=== PATIENT | male | born 1955 | race Caucasian/White ===

== ENCOUNTER → 2019-01-07 | Outpatient (CLI) | payer BC ==
[2019-01-07 13:02] LABS: Basophils # (A) 0.1 k/uL (0-0.2); Basophils % (A) 1 %; Eosinophils # (A) 0.2 k/uL (0-0.7); Eosinophils % (A) 2 %; HCT 45.9 % (39.0-53.0); HGB 15.2 gm/dL (13.0-17.5); Lymphocytes # (A) 1.6 k/uL (1.0-4.8); Lymphocytes % (A) 19 %; MCH 30.2 pg (25.0-35.0); MCHC 33.2 g/dL (31.0-37.0); Mean Platelet Volume 6.5; Monocytes # (A) 0.6 k/uL (0-1.0); Monocytes % (A) 7 %; Neutrophils # (A) 5.8 k/uL (1.3-7.7); Neutrophils % (A) 69 %; Platelet Count 300 k/uL (150-450); RBC 5.04 m/uL (4.30-5.90); RDW 13.3 % (11.5-15.5); WBC 8.3 k/uL (3.8-10.6)
[2019-01-07 14:35] LABS: Erythrocyte Sedimentation Rate 7 mm/hr (0-15)
[2019-01-07 21:17] LABS: Codfish IgE <0.10 kU/L
[2019-01-07 21:40] LABS: Egg White IgE <0.10 kU/L; Scallop IgE <0.10 kU/L
[2019-01-07 21:41] LABS: Clam IgE <0.10 kU/L; Shrimp IgE <0.10 kU/L; Soybean IgE <0.10 kU/L; Walnut IgE (Food) <0.10 kU/L
[2019-01-07 21:42] LABS: Peanut IgE <0.10 kU/L
[2019-01-08 13:58] LABS: Alt. alternata IgE Class CLASS 0; Alternaria alternata IgE <0.35 kU/L (<0.35); Asperg. fumagatus IgE <0.35 kU/L (<0.35); Asperg. fumagatus IgE Class CLASS 0; Beef IgE <0.35 kU/L (<0.35); Beef IgE Class CLASS 0; Bermuda Grass IgE <0.35 kU/L (<0.35); Birch(Com.Silvr) IgE <0.35 kU/L (<0.35); Birch(Com.Silvr) IgE Class CLASS 0; Cat Epith & Dander IgE <0.35 kU/L (<0.35); Cat Epith & Dander IgE Class CLASS 0; Clad herbarum IgE <0.35 kU/L (<0.35); Clad herbarum IgE Class CLASS 0; Cockroach IgE 0.42 kU/L (<0.35); Cottonwood IgE <0.35 kU/L (<0.35); Dermato. Pteronyssinus Class CLASS IV; Dermato. farinae IgE Class CLASS IV; Dog Dander IgE <0.35 kU/L (<0.35); Elm IgE <0.35 kU/L (<0.35); Maple (Box Elder) IgE <0.35 kU/L (<0.35); Maple (Box Elder) IgE Class CLASS 0; Mountain Cedar IgE <0.35 kU/L (<0.35); Mountain Cedar IgE Class CLASS 0; Mouse Urine IgE Class CLASS 0; Nettle IgE <0.35 kU/L (<0.35); Nettle IgE Class CLASS 0; Oak IgE <0.35 kU/L (<0.35); Penicillium notatum IgE Class CLASS I; Rough Marshelder IgE <0.35 kU/L (<0.35); Rough Marshelder IgE Class CLASS 0; Timothy Grass IgE <0.35 kU/L (<0.35); White Ash IgE Class CLASS 0
[2019-01-08 13:59] LABS: Chicken IgE Class CLASS 0; Latex IgE Class CLASS 0; Yeast Bakers/Brew IgE 0.47 kU/L (<0.35)
== END | disposition home or self-care (01) ==
LOC: LABWHC1 12:31
PROVIDERS: ATTEND Otolaryngology
DX: L50.0 Allergic urticaria (principal); R21 Rash and other nonspecific skin eruption
CPT/HCPCS: 36415; 82785; 85025; 85652; 86003; 86140

== ENCOUNTER → 2019-06-04 | Outpatient (CLI) | payer BC ==
[2019-06-04 14:42] LABS: Basophils # (A) 0.2 k/uL (0-0.2); Basophils % (A) 1 %; Eosinophils # (A) 0.2 k/uL (0-0.7); Eosinophils % (A) 1 %; HCT 42.6 % (39.0-53.0); HGB 13.3 gm/dL (13.0-17.5); Lymphocytes # (A) 3.6 k/uL (1.0-4.8); Lymphocytes % (A) 16 %; MCH 28.9 pg (25.0-35.0); MCHC 31.1 g/dL (31.0-37.0); Mean Platelet Volume 6.6; Monocytes % (A) 4 %; Neutrophils # (A) 17.2 k/uL (1.3-7.7); Neutrophils % (A) 77 %; Platelet Count 768 k/uL (150-450); RBC 4.58 m/uL (4.30-5.90); RDW 13.8 % (11.5-15.5); WBC 22.4 k/uL (3.8-10.6)
== END | disposition home or self-care (01) ==
LOC: LABWHC1 13:44
PROVIDERS: ATTEND Registered Nurse
DX: D64.9 Anemia, unspecified (principal)
CPT/HCPCS: 36415; 85025

== ENCOUNTER → 2019-06-10 | Outpatient (CLI) | payer BC ==
[2019-06-10 12:24] LABS: HCT 39.9 % (39.0-53.0); HGB 12.7 gm/dL (13.0-17.5); MCH 29.6 pg (25.0-35.0); MCHC 31.9 g/dL (31.0-37.0); MCV 92.9 fL (80.0-100.0); Mean Platelet Volume 6.3; Platelet Count 672 k/uL (150-450); RDW 14.9 % (11.5-15.5)
[2019-06-10 15:46] LABS: Erythrocyte Sedimentation Rate 30 mm/hr (0-15)
[2019-06-10 16:44] LABS: ALT 48 U/L (10-49); AST 36 U/L (14-35); African American GFR (CKD) 109.4 (60.0-200.0); Alkaline Phosphatase 92 U/L (41-126); C Reactive Protein <0.4 mg/dL (0.0-0.8); Calcium 8.9 mg/dL (8.7-10.3); Carbon Dioxide 26.9 mmol/L (21.6-31.8); Chloride 102 mmol/L (96-109); Glucose 93 mg/dL (70-110); Non-African American GFR(CKD) 94.4 (60.0-200.0); Potassium 3.8 mmol/L (3.5-5.5); Sodium 139 mmol/L (135-145); Total Bilirubin 0.4 mg/dL (0.3-1.2); Total Protein 5.6 g/dL (6.2-8.2)
[2019-06-10 17:31] LABS: Hepatitis A Antibody IgM Non-Reactive (Non-Reactive); Hepatitis B Core IgM Non-Reactive (Non-Reactive); Hepatitis B Surface Antigen Non-Reactive (Non-Reactive); Hepatitis C IgG Antibody Non-Reactive (Non-Reactive)
== END | disposition home or self-care (01) ==
LOC: LABWHC1 11:14
PROVIDERS: ATTEND Physician Assistant
DX: K50.90 Crohn's disease, unspecified, without complications (principal)
CPT/HCPCS: 36415; 80053; 80074; 85027; 85652; 86140; 86480

== ENCOUNTER → 2019-10-30 | Outpatient (CLI) | payer BC ==
[2019-10-30 16:01] LABS: HCT 44.7 % (39.0-53.0); HGB 14.7 gm/dL (13.0-17.5); MCH 30.8 pg (25.0-35.0); MCHC 32.9 g/dL (31.0-37.0); MCV 93.8 fL (80.0-100.0); Mean Platelet Volume 8.2; Platelet Count 324 k/uL (150-450); RBC 4.76 m/uL (4.30-5.90); RDW 13.2 % (11.5-15.5); WBC 9.7 k/uL (3.8-10.6)
[2019-10-30 23:25] LABS: Erythrocyte Sedimentation Rate 15 mm/Hr (0-20)
[2019-10-30 23:27] LABS: African American GFR (CKD) 104.2 (60.0-200.0); Albumin 4.4 g/dL (3.80-4.90); Albumin/Globulin Ratio 1.76 (1.60-3.17); Anion Gap 8.8 mmol/L (4.00-12.00); BUN/Creat Ratio 17.78 Ratio (12.00-20.00); C Reactive Protein 3.1 mg/dL (0.0-0.8); Calcium 9.2 mg/dL (8.7-10.3); Carbon Dioxide 21.2 mmol/L (21.6-31.8); Globulin 2.5 g/dL (1.6-3.3); Non-African American GFR(CKD) 89.9 (60.0-200.0); Potassium 3.9 mmol/L (3.5-5.5); Total Bilirubin 0.8 mg/dL (0.3-1.2); Total Protein 6.9 g/dL (6.2-8.2)
== END | disposition home or self-care (01) ==
LOC: LABWHC1 13:23
PROVIDERS: ATTEND Physician Assistant
DX: K51.90 Ulcerative colitis, unspecified, without complications (principal)
CPT/HCPCS: 36415; 80053; 85027; 85652; 86140

== ENCOUNTER 2021-02-19 16:06 | Emergency (ER) | payer BC, MEDICARE ==
[2021-02-19] MEDS ORDERED: MORPHINE SULFATE 4 MG/ML SYRINGE IV STA (17:35)
[2021-02-19] MEDS ORDERED: SODIUM CHLORIDE 0.9% 1,000 ML IV STA (17:35)
[2021-02-19] MEDS ORDERED: ONDANSETRON 4 MG/2 ML VIAL IVP STA (17:35)
[2021-02-19] MEDS ORDERED: methylPREDNISolone SOD SUCCI 125 MG/2 ML VIAL IV STA (17:36)
--- NOTE | 2021-02-19 18:15 | ED ---
Abdominal Pain HPI - General Chief Complaint: Abdominal Pain Stated Complaint: colitis flare up Time Seen by Provider: 02/19/21 17:18 Source: patient, RN notes reviewed, old records reviewed Mode of arrival: ambulatory Limitations: no limitations - History of Present Illness Initial Comments: Patient is a 65-year-old male presenting to the emergency Department with complaints of a flare-up of UC. Patient states he's been having diarrhea on and off abdominal pain over the past 2 weeks. He did see his iridologist, Dr. Luis last week, started him on a steroid, it was not helping. He followed back up with his primary care physician who started him on prednisone yesterday. He took 40 mg yesterday, none today. He takes Humira regularly for his UC. He states has been doing fairly well has not had a flareup in the past couple years. He recently lost his secondary to cancer one month ago and has been under a lot of stress. He believes this is the reason for his flareup. He has not been taking anything for pain. Denies any chest pain or shortness of breath, no fevers or chills, some intermittent nausea but no vomiting. Some days it is a little bit of blood mixed in his diarrhea. He's been going about 7-10 times daily, but it has been very little amounts the past couple days. Patient has no further complaints. His vitals are stable upon arrival. - Related Data Home Medications Medication Instructions Recorded Confirmed ALPRAZolam [Xanax] 0.25 mg PO BID 02/19/21 02/19/21 Atorvastatin [Lipitor] 80 mg PO DAILY 02/19/21 02/19/21 Budesonide [Budesonide EC] 9 mg PO DAILY 02/19/21 02/19/21 Humira Unknown Dose 1 dose SQ Q14D 02/19/21 02/19/21 Losartan Potassium 100 mg PO DAILY 02/19/21 02/19/21 Montelukast [Singulair] 10 mg PO HS 02/19/21 02/19/21 Omeprazole 40 mg PO DAILY 02/19/21 02/19/21 Allergies Allergy/AdvReac Type Severity Reaction Status Date / Time iodine Allergy Severe Swelling Verified 02/19/21 18:10 shellfish derived [Shellfish] Allergy Swelling Verified 02/19/21 18:10 Review of Systems ROS Statement: Those systems with pertinent positive or pertinent negative responses have been documented in the HPI. ROS Other: All systems not noted in ROS Statement are negative. Past Medical History Past Medical History: GERD/Reflux, Hyperlipidemia, Hypertension Additional Past Medical History / Comment(s): COLITIS History of Any Multi-Drug Resistant Organisms: None Reported Past Surgical History: Hernia Repair Additional Past Surgical History / Comment(s): EGD, COLONOSCOPY,VASECTOMY, hernia repair x 2 Past Anesthesia/Blood Transfusion Reactions: Motion Sickness, Postoperative Nausea & Vomiting (PONV) Past Psychological History: No Psychological Hx Reported Smoking Status: Never smoker Past Alcohol Use History: Occasional Past Drug Use History: None Reported - Past Family History Mother Family Medical History: No Reported History General Exam - General Exam Comments Initial Comments: GENERAL: Patient is well-developed and well-nourished. Patient is nontoxic and in no acute distress. HEAD: Atraumatic, normocephalic. EYES: Pupils equal round and reactive to light, extraocular movements intact, sclera anicteric, conjunctiva are normal. Eyelids were unremarkable. ENT: Moist mucous membranes. NECK: Normal range of motion, supple without lymphadenopathy or JVD. LUNGS: Unlabored respirations. Breath sounds clear to auscultation bilaterally and equal. No wheezes rales or rhonchi. HEART: Regular rate and rhythm without murmurs, rubs or gallops. ABDOMEN: Soft, tender in the left side of the abdomen, normoactive bowel sounds. No guarding, no rebound. No masses appreciated. MUSCULOSKELETAL: Normal extremities with adequate strength and normal range of motion, no pitting or edema. No clubbing or cyanosis. NEUROLOGICAL: Patient is alert and oriented x 3. Motor and sensory are also intact. Cranial nerves II through XII grossly intact. Symmetrical smile. Normal speech, normal gait. PSYCH: Normal mood, normal affect. SKIN: Warm, Dry, normal turgor, no rashes or lesions noted. Limitations: no limitations Course Vital Signs 02/19/21 02/19/21 16:34 21:26 Temperature 99.1 F 98.0 F Pulse Rate 110 H 79 Respiratory 20 17 Rate Blood Pressure 125/80 128/68 O2 Sat by Pulse 95 95 Oximetry Medical Decision Making - Medical Decision Making Patient is a 65-year-old male with history of ulcerative colitis, presenting with a flareup over the past 2 weeks. He was started on prednisone yesterday by his PCP. He follows with Dr. Luis. His vitals are stable upon arrival. Patient's labs show no acute abnormality other than some mild transaminitis. I recommended following up with his PCP regarding this. Patient received some fluids, pain control and has been resting comfortably. He states his pain is gone at this time. I do recommend continuing on his already prescribed ruel roids. He is agreeable to this. I also recommended following up with Dr. Luis. Return parameters were discussed with him and he verbalized understanding. Case discussed with Dr. Turcios. - Lab Data Result diagrams: 02/19/21 18:46 02/19/21 18:46 Lab Results 02/19/21 02/19/21 02/19/21 Range/Units 18:46 18:46 18:46 WBC 9.0 (3.8-10.6) k/uL RBC 4.67 (4.30-5.90) m/uL Hgb 14.6 (13.0-17.5) gm/dL Hct 42.1 (39.0-53.0) % MCV 90.3 (80.0-100.0) fL MCH 31.2 (25.0-35.0) pg MCHC 34.6 (31.0-37.0) g/dL RDW 12.7 (11.5-15.5) % Plt Count 368 (150-450) k/uL MPV 7.5 Neutrophils % (Manual) 55 % Band Neuts % (Manual) 12 % Lymphocytes % (Manual) 14 % Monocytes % (Manual) 16 % Eosinophils % (Manual) 3 % Neutrophils # (Manual) 6.00 (1.3-7.7) k/uL Lymphocytes # (Manual) 1.26 (1.0-4.8) k/uL Monocytes # (Manual) 1.44 H (0-1.0) k/uL Eosinophils # (Manual) 0.27 (0-0.7) k/uL Nucleated RBCs 0 (0-0) /100 WBC Manual Slide Review Performed Poikilocytosis (manual Present PT (9.0-12.0) sec INR (<1.2) APTT (22.0-30.0) sec Sodium 133 L (137-145) mmol/L Potassium 4.2 (3.5-5.1) mmol/L Chloride 100 (98-107) mmol/L Carbon Dioxide 24 (22-30) mmol/L Anion Gap 9 mmol/L BUN 15 (9-20) mg/dL Creatinine 0.84 (0.66-1.25) mg/dL Est GFR (CKD-EPI)AfAm >90 (>60 ml/min/1.73 sqM) Est GFR (CKD-EPI)NonAf >90 (>60 ml/min/1.73 sqM) Glucose 123 H (74-99) mg/dL Plasma Lactic Acid Weston (0.7-2.0) mmol/L Calcium 9.0 (8.4-10.2) mg/dL Total Bilirubin 0.4 (0.2-1.3) mg/dL AST 105 H (17-59) U/L ALT 138 H (4-49) U/L Alkaline Phosphatase 68 (38-126) U/L Total Protein 6.5 (6.3-8.2) g/dL Albumin 3.4 L (3.5-5.0) g/dL Amylase 65 (30-110) U/L Lipase 52 (23-300) U/L Urine Color Yellow Urine Appearance Clear (Clear) Urine pH 5.5 (5.0-8.0) Ur Specific Isabel 1.021 (1.001-1.035) Urine Protein 1+ H (Negative) Urine Glucose (UA) Negative (Negative) Urine Ketones Negative (Negative) Urine Blood Trace H (Negative) Urine Nitrite Negative (Negative) Urine Bilirubin Negative (Negative) Urine Urobilinogen <2.0 (<2.0) mg/dL Ur Leukocyte Esterase Negative (Negative) Urine RBC 1 (0-5) /hpf Urine WBC 1 (0-5) /hpf Urine Mucus Few H (None) /hpf 02/19/21 02/19/21 Range/Units 18:46 18:46 WBC (3.8-10.6) k/uL RBC (4.30-5.90) m/uL Hgb (13.0-17.5) gm/dL Hct (39.0-53.0) % MCV (80.0-100.0) fL MCH (25.0-35.0) pg MCHC (31.0-37.0) g/dL RDW (11.5-15.5) % Plt Count (150-450) k/uL MPV Neutrophils % (Manual) % Band Neuts % (Manual) % Lymphocytes % (Manual) % Monocytes % (Manual) % Eosinophils % (Manual) % Neutrophils # (Manual) (1.3-7.7) k/uL Lymphocytes # (Manual) (1.0-4.8) k/uL Monocytes # (Manual) (0-1.0) k/uL Eosinophils # (Manual) (0-0.7) k/uL Nucleated RBCs (0-0) /100 WBC Manual Slide Review Poikilocytosis (manual PT 11.0 (9.0-12.0) sec INR 1.0 (<1.2) APTT 24.3 (22.0-30.0) sec Sodium (137-145) mmol/L Potassium (3.5-5.1) mmol/L Chloride (98-107) mmol/L Carbon Dioxide (22-30) mmol/L Anion Gap mmol/L BUN (9-20) mg/dL Creatinine (0.66-1.25) mg/dL Est GFR (CKD-EPI)AfAm (>60 ml/min/1.73 sqM) Est GFR (CKD-EPI)NonAf (>60 ml/min/1.73 sqM) Glucose (74-99) mg/dL Plasma Lactic Acid Weston 1.0 (0.7-2.0) mmol/L Calcium (8.4-10.2) mg/dL Total Bilirubin (0.2-1.3) mg/dL AST (17-59) U/L ALT (4-49) U/L Alkaline Phosphatase (38-126) U/L Total Protein (6.3-8.2) g/dL Albumin (3.5-5.0) g/dL Amylase (30-110) U/L Lipase (23-300) U/L Urine Color Urine Appearance (Clear) Urine pH (5.0-8.0) Ur Specific Isabel (1.001-1.035) Urine Protein (Negative) Urine Glucose (UA) (Negative) Urine Ketones (Negative) Urine Blood (Negative) Urine Nitrite (Negative) Urine Bilirubin (Negative) Urine Urobilinogen (<2.0) mg/dL Ur Leukocyte Esterase (Negative) Urine RBC (0-5) /hpf Urine WBC (0-5) /hpf Urine Mucus (None) /hpf Disposition Clinical Impression: Abdominal pain, Ulcerative colitis Disposition: HOME SELF-CARE Condition: Stable Instructions (If sedation given, give patient instructions): Ulcerative Colitis (ED) Additional Instructions: Please return to the Emergency Department if symptoms worsen or any other concerns. Recommend Tylenol for any discomfort, Tylenol No. 3 for more severe pain. Increase yours fluids. Please follow-up with Dr. Luis. Is patient prescribed a controlled substance at d/c from ED?: No Referrals: Jamel Campbell DO [Primary Care Provider] - 1-2 days Sandrine Luis MD [STAFF PHYSICIAN] - 1-2 days Time of Disposition: 20:55
--- NOTE | 2021-02-19 18:35 | XR ---
EXAMINATION TYPE: XR KUB DATE OF EXAM: 02/19/2021 COMPARISON: NONE HISTORY: Abdominal pain TECHNIQUE: 2 views upright FINDINGS: There is no sign of intestinal obstruction or pneumoperitoneum. Fecal pattern is normal. Th ere is some mild thumbprinting involving the descending colon. There are no calcifications over the k idneys. IMPRESSION: There is evidence for some thumbprinting of the left colon that could relate to colitis. No bowel obstruction.
[2021-02-19 18:55] LABS: Appearance,Urine Clear (Clear); Bilirubin,Urine Negative (Negative); Blood,Urine Trace (Negative); Color,Urine Yellow; Glucose,Urine (UA) Negative (Negative); Ketones,Urine Negative (Negative); Leukocyte Esterase,Urine Negative (Negative); Mucus,Urine Few /hpf; Nitrite,Urine Negative (Negative); PH, Urine 5.5 (5.0-8.0); Protein,Urine 1+ (Negative); RBC,Urine 1 /hpf (0-5); Specific Gravity,Urine 1.021 (1.001-1.035); Urobilinogen,Urine <2.0 mg/dL (<2.0); WBC,Urine 1 /hpf (0-5)
[2021-02-19 19:44] LABS: ALT 138 U/L (4-49); AST 105 U/L (17-59); African American GFR (CKD) >90 (>60 ml/min/1.73 sqM); Albumin 3.4 g/dL (3.5-5.0); Alkaline Phosphatase 68 U/L (38-126); Amylase 65 U/L (30-110); Anion Gap 9 mmol/L; Blood Urea Nitrogen 15 mg/dL (9-20); Carbon Dioxide 24 mmol/L (22-30); Chloride 100 mmol/L (98-107); Glucose 123 mg/dL (74-99); Lipase 52 U/L (23-300); Non-African American GFR(CKD) >90 (>60 ml/min/1.73 sqM); Potassium 4.2 mmol/L (3.5-5.1); Sodium 133 mmol/L (137-145); Total Bilirubin 0.4 mg/dL (0.2-1.3); Total Protein 6.5 g/dL (6.3-8.2)
[2021-02-19 19:51] LABS: Partial Thromboplastin Time 24.3 sec (22.0-30.0)
[2021-02-19 20:01] LABS: HCT 42.1 % (39.0-53.0); HGB 14.6 gm/dL (13.0-17.5); MCH 31.2 pg (25.0-35.0); MCHC 34.6 g/dL (31.0-37.0); MCV 90.3 fL (80.0-100.0); Mean Platelet Volume 7.5; Platelet Count 368 k/uL (150-450); RBC 4.67 m/uL (4.30-5.90); RDW 12.7 % (11.5-15.5)
[2021-02-19] MEDS ORDERED: ACET/COD 300 MG/30 MG STARTER PACK 6 TAB BTL PO STA (20:55)
[2021-02-19 21:08] LABS: Band Neutrophils % 12 %; Eosinophils # (M) 0.27 k/uL (0-0.7); Lymphocytes # (M) 1.26 k/uL (1.0-4.8); Monocytes # (M) 1.44 k/uL (0-1.0); Neutrophils % (M) 55 %; Nucleated Red Blood Cells 0 /100 WBC (0-0); Poikilocytosis (M) Present; Total Cells Counted 100
[2021-02-19 21:27] VITALS: BP 128/68; PULSE 79; RESP 17; TEMP 98
== END 2021-02-19 21:15 | disposition home or self-care (01) ==
LOC: EC 16:06
DX: K51.90 Ulcerative colitis, unspecified, without complications (principal); I10 Essential (primary) hypertension; E78.5 Hyperlipidemia, unspecified; K21.9 Gastro-esophageal reflux disease without esophagitis
CPT/HCPCS: 99284; 96374; 96375 ×2; 96361; 36415; 80053; 82150; 83605; 83690; 85025; 85610; 85730; 81001; 74018; J2270; J2930; J2405

== ENCOUNTER 2021-10-08 06:25 | Day surgery (SDC) | payer MEDICARE ==
[2021-10-06 11:18] VITALS: BMI 27.1
[~2021-10-08 06:25] MED LIST: LACTATED RINGERS 1,000 ML IV SCH; LIDOCAINE 1% (10MG/ML) FOR IV START INTRADERMA PRN
[2021-10-08 06:53] VITALS: RESP 16; TEMP 98.9
[2021-10-08] MEDS ORDERED: PROPOFOL 10 MG/ML 20 ML VIAL IV ONE (07:29)
[2021-10-08] MEDS ORDERED: LIDOCAINE 2% INJ 20 MG/ML (2 ML VIAL) ONE (07:29)
--- NOTE | 2021-10-08 07:52 | P.PCN ---
Date of Procedure: 10/08/21 Procedure(s) Performed: Brief history: Patient is a pleasant 66-year-old white male scheduled for an elective upper endoscopy as well as colonoscopy as a part of evaluation ofGERD and long- standing history of ulcerative colitis diagnosed in 2010. He is currently maintained on Humira 40 mg every 2 weeks since 05/2020. Procedure performed: Esophagogastroduodenoscopy with with biopsy Colonoscopywith biopsy Preoperative diagnosis: GERD Long-standing history of ulcerative colitis Anesthesia: MAC Procedure: After informed consent was obtained from the patient was brought into the endoscopy unit and IV sedation was administered by anesthesia under continuous monitoring. Initially upper endoscopy was done. The Olympus GF 160 video endoscope was inserted inserted into the mouth and esophagus intubated without any difficulty and was gradually advanced into the stomach and duodenum and carefully examined. The bulb and second part of the duodenum appeared normal. The scope was then withdrawn into the stomach adequately insufflated with air and upon careful examination the antrum and body, cardia and fundus appeared normal. The scope was then withdrawn into the esophagus. The GE junction was located at 40 cm to the incisors. Random biopsies were done from the cecum to rectum at every 10 cm into well.small sliding type hiatal hernia noted. It appeared regular with no erythema erosions or ulcerations. Rest of the esophagus appeared normal. Patient tolerated the procedure well. At this time the patient continued to remain sedation. Initial digital rectal examination was normal. Olympus CF 160 video colonoscope was then inserted into the rectum and gradually advanced to the cecum without any difficulty. Careful examination was performed as the scope was gradually being withdrawn. The prep was excellent. The cecum, ascending colonIV normal. Mucosa of the, transverse colon, descending colon, sigmoid colon and rectum had scattered pseudopolyps noted but no evidence of active colitis.random biopsies were done from the rectum to cecum and every 10 cm into well. Retroflexion was performed in the rectum and no lesions were noted. Patient tolerated the procedure well. Impression: 1. Upper endoscopy revealed small hiatal hernia but no evidence of esophagitis o r Srivastava's esophagus 2. Colonoscopy revealed scattered pseudopolyps involving the left colon but no evidence of active colitis or colorectal neoplasia Recommendations: Findings of this examination were discussed with the patient as well asHis family. He was advised to follow with the biopsy results. If the biopsy does not have evidence of dysplasia, he can have a repeat colonoscopy in 2 years.
[2021-10-08 07:58] VITALS: PULSE 76
[2021-10-08 08:08] VITALS: BP 135/84
== END 2021-10-08 08:31 | disposition home or self-care (01) ==
LOC: ORWHC2ENDO 06:25
PROVIDERS: ATTEND Internal Medicine Gastroenterology
DX: K51.90 Ulcerative colitis, unspecified, without complications (principal); K52.9 Noninfective gastroenteritis and colitis, unspecified; K21.00 Gastro-esophageal reflux disease with esophagitis, without bleeding; K44.9 Diaphragmatic hernia without obstruction or gangrene; I10 Essential (primary) hypertension; E78.5 Hyperlipidemia, unspecified; G47.33 Obstructive sleep apnea (adult) (pediatric); Z91.013 Allergy to seafood; Z87.891 Personal history of nicotine dependence; Z79.899 Other long term (current) drug therapy; Z88.8 Allergy status to other drugs, medicaments and biological substances
CPT/HCPCS: 88305; 45380; 43239; J2704; J2001

== ENCOUNTER → 2023-09-21 | Outpatient (CLI) | payer MEDICARE ==
--- NOTE | 2023-09-23 16:29 | CT ---
EXAMINATION TYPE: CT sinus wo con DATE OF EXAM: 09/21/2023 COMPARISON: None HISTORY: sinus congestion CT DLP: 413 mGycm CONTRAST: 0 mL of Isovue 300 The paranasal sinuses are examined in the axial plane at 2 mm thick sections. Reconstructed images i n the coronal plane were obtained. There is dental amalgam scatter artifact Minimal mucosal thickening within the inferior right maxillary sinus. The ethmoid air cells are tari r. The sphenoid sinuses are clear. The frontal sinuses are clear. The septum is evaluated. There is septal deviation to the right. Bilateral maria c bullosa of the mid dle turbinates may be present. Nasal passages patent. The ostiomeatal units are patent. IMPRESSION: 1. No suspicious paranasal sinus changes. Some minimal mucosal thickening within the inferior right maxillary sinus.
== END | disposition home or self-care (01) ==
LOC: RADCTMAIN 11:50
PROVIDERS: ATTEND Family Medicine
DX: J32.0 Chronic maxillary sinusitis (principal); J32.1 Chronic frontal sinusitis
CPT/HCPCS: 70486

== ENCOUNTER → 2023-11-22 | Outpatient (CLI) | payer MEDICARE ==
[2023-11-22 18:36] LABS: Alternaria alternata IgE 0.15 kU/L; Aspergillus fumagatus IgE <0.10 kU/L; Birch IgE <0.10 kU/L; Cat Epith & Dander IgE <0.10 kU/L; Cladosporian herbarum IgE <0.10 kU/L; Cockroach IgE <0.10 kU/L; Dermato. farinae IgE 5.34 kU/L; Maple (Box Elder) IgE <0.10 kU/L; Oak IgE <0.10 kU/L; Ragweed,Common IgE <0.10 kU/L
[2023-11-23 14:00] LABS: Aureo. pullulans IgE <0.10 kU/L (<0.10); Aureo. pullulans IgE Class CLASS 0; Candida albicans IgE Class CLASS 0; Com. Pigweed IgE 0.15 kU/L (<0.10); Com. Pigweed IgE Class CLASS 0/1; Cottonwood IgE <0.10 kU/L (<0.10); English Plantain IgE Class CLASS 0; Epicoccum purpurascens Class CLASS 0; Epicoccum purpurascens IgE <0.10 kU/L (<0.10); Johnson Grass IgE Class CLASS 0; Lamb's Quarter IgE <0.10 kU/L (<0.10); Lamb's Quarter IgE Class CLASS 0; Mucor racemosus IgE <0.10 kU/L (<0.10); Mucor racemosus IgE Class CLASS 0; Rhizopus nigricans IgE <0.10 kU/L (<0.10); Rhizopus nigricans IgE Class CLASS 0; S.rostrata/Helminth Class CLASS 0; S.rostrata/Helminth IgE <0.10 kU/L (<0.10); Sycamore(Mpl.Lf) IgE <0.10 kU/L (<0.10); Sycamore(Mpl.Lf) IgE Class CLASS 0; Timothy Grass IgE <0.10 kU/L (<0.10); Timothy Grass IgE Class CLASS 0; Walnut Tree IgE <0.10 kU/L (<0.10); Walnut Tree IgE Class CLASS 0; White Ash IgE Class CLASS 0
== END | disposition home or self-care (01) ==
LOC: LABWHC1 09:07
PROVIDERS: ATTEND Otolaryngology
DX: J30.89 Other allergic rhinitis (principal)
CPT/HCPCS: 36415; 82785; 86003

== ENCOUNTER 2024-01-03 05:51 | Day surgery (SDC) | payer MEDICARE ==
[2024-01-03] MEDS ORDERED: LIDOCAINE 1% (10MG/ML) FOR IV START INTRADERMA PRN (06:24)
[2024-01-03 06:35] VITALS: TEMP 98
[2024-01-03] MEDS: IV FLUID CONTINUATION 1,000 ML IV ONE (06:51)
[2024-01-03] MEDS: LACTATED RINGERS 1,000 ML IV SCH (06:52)
[2024-01-03] MEDS ORDERED: LIDOCAINE 1% INJ 10MG/ML (20 ML MDV) ONE (07:16)
[2024-01-03] MEDS ORDERED: PROPOFOL 10 MG/ML 20 ML VIAL IV ONE (07:16)
--- NOTE | 2024-01-03 07:33 | P.PCN ---
Date of Procedure: 01/03/24 Procedure(s) Performed: Brief history: Patient is a pleasant 68-year-old white male scheduled for an elective upper endoscopy as well as colonoscopy as a part of evaluation of longstanding history of GERD and screening for colon cancer/history of ulcerative colitis. He was diagnosed with ulcerative colitis in 2010 and has been maintained on Humira injections every 2 weeks and remains in clinical remission Procedure performed: Esophagogastroduodenoscopy biopsy Colonoscopy with biopsy Preoperative diagnosis: Longstanding history of GERD Screening for colon cancer/history of ulcerative colitis Anesthesia: MAC Procedure: After informed consent was obtained from the patient was brought into the endo scopy unit and IV sedation was administered by anesthesia under continuous monitoring. Initially upper endoscopy was done. The Olympus GF 160 video endoscope was inserted inserted into the mouth and esophagus intubated without any difficulty and was gradually advanced into the stomach and duodenum and carefully examined. The bulb and second part of the duodenum appeared normal. The scope was then withdrawn into the stomach adequately insufflated with air and upon careful examination the antrum and mild gastritis and biopsies were done from this area. Mucosa of the body, cardia and fundus appeared normal. The scope was then withdrawn into the esophagus. Mild hiatal hernia noted. The GE junction was located at 43 cm to the incisors. It appeared regular with no erythema erosions or ulcerations. Rest of the esophagus appeared normal. Patient tolerated the procedure well. At this time the patient continued to remain sedation. Initial digital rectal examination was normal. Olympus CF 160 video colonoscope was then inserted into the rectum and gradually advanced to the cecum without any difficulty. Careful examination was performed as the scope was gradually being withdrawn. The prep was excellent. The cecum, ascending colon, transverse colon appeared normal. Scattered pseudopolyps noted in the, descending colon, sigmoid colon. Scattered sigmoid diverticulosis seen. There was some mucosal scarring noted in the rectum from prior colitis. No active colitis seen. Random biopsies were done from the cecum to rectum at every 10 cm intervals to rule out dysplasia retroflexion was performed in the rectum and no lesions were noted. Patient tolerated the procedure well. Impression: 1. Upper endoscopy revealed mild gastritis and small hiatal hernia but no yuridia dence of esophagitis or Srivastava's esophagus 2. Colonoscopy revealed scattered pseudopolyps in the descending colon and spreading of the mucosa in the sigmoid and rectum with no active colitis or colo rectal neoplasia Recommendations: Findings of this examination were discussed with the patient as well as his family. He was advised to follow-up with the biopsy results. Continue with omeprazole 20 mg daily and follow antireflux measures. If the colon biopsies do not show any evidence of dysplasia, recommend repeat colonoscopy in 2 years.
[2024-01-03 07:53] VITALS: BP 160/82; PULSE 60; RESP 17
== END 2024-01-03 08:23 | disposition home or self-care (01) ==
LOC: ORWHC2ENDO 05:51
PROVIDERS: ATTEND Internal Medicine Gastroenterology
DX: Z12.11 Encounter for screening for malignant neoplasm of colon (principal); K51.90 Ulcerative colitis, unspecified, without complications; K21.9 Gastro-esophageal reflux disease without esophagitis; K44.9 Diaphragmatic hernia without obstruction or gangrene; K29.50 Unspecified chronic gastritis without bleeding
CPT/HCPCS: 43239; 45380; 88305